=== PATIENT | male | born 1970 | race Caucasian/White ===

== ENCOUNTER → 2017-11-28 14:34 | Outpatient (CLI) | payer OTHER, SELFPAY ==
[2016-12-28 14:48] VITALS: BMI 48.2
[2017-11-28 15:35] LABS: Hematocrit 41.7 % (40-54); Hemoglobin 14.3 g/dl (13.0-16.5); Mean Corp Hgb Conc 34.3 g/gl (32-36); Mean Corpuscular Hgb 30.7 pg (27.0-32.0); Mean Corpuscular Volume 89.5 fL (80-94); Mean Platelet Vol. 9.1 fl (6.2-12.0); Platelet Count 203 K/mm3 (150-450); RBC Distribution Width SD 38.8 fl (35.1-43.9); Red Blood Count 4.66 M/mm3 (4.6-6.2); White Blood Count 6.5 K/mm3 (4.4-11.0)
[2017-11-28 15:39] LABS: Scan Indicated on CBC? Y/N NO
[2017-11-28 16:04] LABS: Microalbumin,Random Urine 7.8 mg/L (NO RANGE EST.); Microalbumin:Creatinine Ratio 5.5 mg/g CRE (<30 mg/g CRE)
[2017-11-28 17:05] LABS: ALB/GLOB Ratio 1.2 RATIO (0.9-2.4); AST(SGOT) 15 U/L (15-37); Alanine Aminotransfer ALT/SGPT 25 U/L (16-61); Alkaline Phosphatase 65 U/L (45-117); Anion Gap 10 (5-15); BUN 14 mg/dL (7-18); BUN/Creat Ratio 15.7 RATIO (10-20); Calcium,Total 9.3 mg/dL (8.5-10.1); Chloride 105 mmol/L (98-107); Cholesterol 196 mg/dL (200); Creatinine, Serum 0.89 mg/dL (0.70-1.30); EST Glomerular Filtration Rate 98 mL/min (>60); Est Glom Filt Rate - Afr Amer 118 mL/min (>60); Globulin 3.4 g/dL (2.2-4.2); Glucose 107 mg/dL (74-106); High Density Lipoprotein 47 mg/dL; Potassium 4.5 mmol/L (3.5-5.1); Protein, Total 7.4 g/dL (6.4-8.2); Sodium Level 143 mmol/L (136-145); Triglycerides 140 mg/dL; Very Low Density Lipoprotein 28 mg/dL (5-40)
[2017-11-29 09:20] LABS: Vitamin B12 212 pg/mL (211-911)
== END ==
PROVIDERS: Family Provider Family Medicine; PCP Family Medicine; Visit Provider Family Medicine
DX: E11.8 Type 2 diabetes mellitus with unspecified complications (principal); I25.10 Atherosclerotic heart disease of native coronary artery without angina pectoris
CPT/HCPCS: 36415; 80053; 80061; 82043; 82570; 82607; 82746; 84443; 85027

== ENCOUNTER 2020-05-14 10:09 | Emergency (ER) | payer OTHER, SELFPAY ==
[2016-12-28 14:48] VITALS: BMI 48.2
[2020-05-14 10:11] VITALS: BP 152/91; PULSE 70; RESP 16; TEMP 35.8; O2SAT 98; BMI 46.6
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
[2020-05-14] MEDS: Diphth,Pertuss(Acell),Tet Vac 0.5 ML Vial IM (10:31)
[2020-05-14] MEDS: Lidocaine 2% (20 ml mdv) 20 ML Vial INFILT (10:32)
[2020-05-14 12:00] VITALS: BP 162/103; PULSE 66; RESP 18
== END 2020-05-14 12:16 | disposition home or self-care (01) ==
PROVIDERS: Emergency Provider Student in an Organized Health Care Education/Training Program; PCP Family Medicine
DX: S61.212A Laceration without foreign body of right middle finger without damage to nail, initial encounter (principal); W26.8XXA Contact with other sharp object(s), not elsewhere classified, initial encounter; Y93.89 Activity, other specified; Y92.9 Unspecified place or not applicable; Y99.9 Unspecified external cause status; Z87.891 Personal history of nicotine dependence
CPT/HCPCS: 12001; 90471; 90715; 99283

== ENCOUNTER → 2020-12-15 | Outpatient (CLI) | payer OTHER, SELFPAY ==
[2016-12-28 14:48] VITALS: BMI 48.2
== END | disposition home or self-care (01) ==
PROVIDERS: PCP Family Medicine; Referring Provider Family Medicine; Visit Provider Family Medicine
DX: Z11.3 Encounter for screening for infections with a predominantly sexual mode of transmission (principal)

== ENCOUNTER 2021-05-01 08:38 | Outpatient (CLI) | payer OTHER, SELFPAY ==
[2016-12-28 14:48] VITALS: BMI 48.2
[2021-05-01 10:50] LABS: ALB/GLOB Ratio 1.1 RATIO (0.9-2.4); AST(SGOT) 12 U/L (15-37); Alanine Aminotransfer ALT/SGPT 25 U/L (16-61); Albumin, Serum 3.8 g/dL (3.2-5.0); Alkaline Phosphatase 55 U/L (45-117); Anion Gap 6 (5-15); BUN 21 mg/dL (7-18); BUN/Creat Ratio 21.2 RATIO (10-20); Calcium,Total 8.7 mg/dL (8.5-10.1); Chloride 107 mmol/L (98-107); Cholesterol 214 mg/dL (200); Creatinine, Serum 0.99 mg/dL (0.70-1.30); EST Glomerular Filtration Rate 85 mL/min (>60); Est Glom Filt Rate - Afr Amer 103 mL/min (>60); Globulin 3.4 g/dL (2.2-4.2); Glucose 152 mg/dL (74-106); High Density Lipoprotein 50 mg/dL; Potassium 4.1 mmol/L (3.5-5.1); Protein, Total 7.2 g/dL (6.4-8.2); Sodium Level 138 mmol/L (136-145); Thyroid Stim Hormone (TSH) 2.55 uIU/mL (0.358-3.74); Triglycerides 106 mg/dL; Very Low Density Lipoprotein 21 mg/dL (5-40)
== END 2021-05-01 23:59 | disposition short-term general hospital (02) ==
LOC: MFPLAB 08:38
PROVIDERS: PCP Family Medicine; Visit Provider Family Medicine
DX: E11.65 Type 2 diabetes mellitus with hyperglycemia (principal); E66.01 Morbid (severe) obesity due to excess calories; I25.10 Atherosclerotic heart disease of native coronary artery without angina pectoris
CPT/HCPCS: 36415; 80053; 80061; 84443

== ENCOUNTER → 2022-10-15 | Outpatient (CLI) | payer OTHER, SELFPAY ==
[2016-12-28 14:48] VITALS: BMI 48.2
--- NOTE | 2022-10-17 12:31 | STRESSREP_ITS ---
Stress Test Report Date: Procedure: Exercise tolerance test Indications: Coronary artery disease Consent: Per the patient Procedure: The patient exercised on a Andriy protocol for 9 minutes achieving a peak heart rate of 142 bpm (84% predicted maximal heart rate) with a peak blood pressure 158/78 mmHg and a peak MET capacity of approximately 10.4 MET's. The baseline ECG demonstrated normal sinus rhythm. The peak exercise ECG demonstrated no ischemic change. There were no cardiac dysrhythmias pretest, during exercise, or recovery. The functional capacity was considered adequate. The patient had no complaints of chest discomfort during exercise or recovery. The examination was discontinued secondary to target heart rate being achieved. Impression: 1. Technically adequate (percent predicted maximal heart rate greater than 85%) exercise tolerance test 2. Peak exercise ECG with no ischemic changes 3. There were no cardiac dysrhythmias during exercise or recovery This note was generated with SynapSenseation software. It may contain incorrect words, spelling, and punctuation that were not noted in checking the note before signing.
== END | disposition home or self-care (01) ==
LOC: CVS 11:31
PROVIDERS: PCP Family Medicine; Referring Provider Internal Medicine Cardiovascular Disease; Visit Provider Internal Medicine Cardiovascular Disease
DX: Z01.810 Encounter for preprocedural cardiovascular examination (principal); E11.9 Type 2 diabetes mellitus without complications; Z95.5 Presence of coronary angioplasty implant and graft; I25.10 Atherosclerotic heart disease of native coronary artery without angina pectoris; G47.33 Obstructive sleep apnea (adult) (pediatric); I10 Essential (primary) hypertension
CPT/HCPCS: 93017

== ENCOUNTER → 2023-05-16 | Outpatient (CLI) | payer OTHER, SELFPAY ==
[2016-12-28 14:48] VITALS: BMI 48.2
[2023-05-16 17:34] LABS: Absolute Lymphocyte Count 3.06 X10^3/uL (0.83-4.51); Absolute Neutrophil Count 3.8 X10^3/uL (2.0-7.7); Basophil# 0.05 X10^3/uL; Basophil% 0.7 % (0-1); Eosinophil# 0.05 X10^3/uL; Eosinophils% 0.7 % (0-5); Hematocrit 44.1 % (40-54); Hemoglobin 14.5 g/dL (13.0-16.5); Lymphocyte # 3.06 X10^3/ul (0.83-4.51); Lymphocyte % 40.9 % (19-41); Mean Corp Hgb Conc 32.9 g/dL (32-36); Mean Corpuscular Hgb 28.7 pg (27.0-32.0); Mean Corpuscular Volume 87.2 fL (80-94); Mean Platelet Vol. 9.4 fl (6.2-12.0); Monocyte# 0.51 X10^3/uL; Monocyte% 6.8 % (0-10); NRBC Flagged by Analyzer 0 % (0-5); Neutrophil # 3.81 X10^3/uL (2.7-7.7); Neutrophil % 50.8 % (47-70); Platelet Count 218 K/mm3 (150-450); RBC Distribution Width CV 12.3 % (11.6-14.6); RBC Distribution Width SD 39.2 fl (35.1-43.9); Red Blood Count 5.06 M/mm3 (4.6-6.2); White Blood Count 7.5 K/mm3 (4.4-11.0)
[2023-05-16 18:17] LABS: AST(SGOT) 16 U/L (15-37); Alanine Aminotransfer ALT/SGPT 31 U/L (16-61); Albumin, Serum 3.8 g/dL (3.2-5.0); Alkaline Phosphatase 57 U/L (45-117); Anion Gap 6 (5-15); BUN 15 mg/dL (7-18); BUN/Creat Ratio 15.2 RATIO (10-20); Calcium,Total 9.5 mg/dL (8.5-10.1); Chloride 107 mmol/L (98-107); Cholesterol 169 mg/dL (200); Creatinine, Serum 0.99 mg/dL (0.70-1.30); EST Glomerular Filtration Rate 84 mL/min (>60); Est Glom Filt Rate - Afr Amer 102 mL/min (>60); Globulin 3.9 g/dL (2.2-4.2); Glucose 87 mg/dL (74-106); PSA,Total - Annual Screen 0.38 ng/mL (0.00-4.00); Potassium 3.8 mmol/L (3.5-5.1); Protein, Total 7.7 g/dL (6.4-8.2); Sodium Level 139 mmol/L (136-145)
[2023-05-16 18:40] LABS: Microalbumin,Random Urine 7.1 mg/L (NO RANGE EST.)
[2023-05-18 08:11] LABS: LDL, Direct 120295 106 mg/dL (0-99)
== END | disposition home or self-care (01) ==
LOC: MFPLAB 16:26
PROVIDERS: PCP Family Medicine; Visit Provider Family Medicine
DX: I25.10 Atherosclerotic heart disease of native coronary artery without angina pectoris (principal); E11.69 Type 2 diabetes mellitus with other specified complication; Z12.5 Encounter for screening for malignant neoplasm of prostate
CPT/HCPCS: 36415; 80053; 82043; 82465; 82570; 83721; 84153; 85025; G0103

== ENCOUNTER → 2023-08-01 | Outpatient (CLI) | payer OTHER, SELFPAY ==
[2016-12-28 14:48] VITALS: BMI 48.2
[2023-08-01 12:34] LABS: ALB/GLOB Ratio 1.1 RATIO (0.9-2.4); AST(SGOT) 12 U/L (15-37); Alanine Aminotransfer ALT/SGPT 18 U/L (16-61); Albumin, Serum 3.8 g/dL (3.2-5.0); Alkaline Phosphatase 56 U/L (45-117); Anion Gap 7 (5-15); BUN 13 mg/dL (7-18); BUN/Creat Ratio 12.7 RATIO (10-20); Calcium,Total 9.5 mg/dL (8.5-10.1); Chloride 107 mmol/L (98-107); Cholesterol 197 mg/dL (200); Creatinine, Serum 1.02 mg/dL (0.70-1.30); EST Glomerular Filtration Rate 82 mL/min (>60); Est Glom Filt Rate - Afr Amer 99 mL/min (>60); Globulin 3.4 g/dL (2.2-4.2); Glucose 81 mg/dL (74-106); High Density Lipoprotein 52 mg/dL; Protein, Total 7.2 g/dL (6.4-8.2); Sodium Level 141 mmol/L (136-145); Triglycerides 65 mg/dL; Very Low Density Lipoprotein 13 mg/dL (5-40)
[2023-08-01 13:49] LABS: Hemoglobin A1c 5.7 % (3.8-5.6)
== END | disposition home or self-care (01) ==
PROVIDERS: PCP Family Medicine; Referring Provider Family Medicine; Visit Provider Family Medicine
DX: I25.10 Atherosclerotic heart disease of native coronary artery without angina pectoris (principal); E11.69 Type 2 diabetes mellitus with other specified complication; E78.5 Hyperlipidemia, unspecified
CPT/HCPCS: 36415; 80053; 80061; 83036

== ENCOUNTER → 2023-10-15 | Outpatient (CLI) | payer OTHER, SELFPAY ==
[2016-12-28 14:48] VITALS: BMI 48.2
[2023-10-15 16:28] LABS: ALB/GLOB Ratio 1.1 RATIO (0.9-2.4); AST(SGOT) 12 U/L (15-37); Alanine Aminotransfer ALT/SGPT 16 U/L (16-61); Albumin, Serum 3.6 g/dL (3.2-5.0); Alkaline Phosphatase 51 U/L (45-117); Anion Gap 7 (5-15); BUN 13 mg/dL (7-18); BUN/Creat Ratio 13.4 RATIO (10-20); Calcium,Total 9.5 mg/dL (8.5-10.1); Chloride 107 mmol/L (98-107); Cholesterol 185 mg/dL (200); Creatinine, Serum 0.97 mg/dL (0.70-1.30); EST Glomerular Filtration Rate 86 mL/min (>60); Est Glom Filt Rate - Afr Amer 104 mL/min (>60); Globulin 3.4 g/dL (2.2-4.2); Glucose 93 mg/dL (74-106); High Density Lipoprotein 54 mg/dL; Potassium 3.8 mmol/L (3.5-5.1); Sodium Level 137 mmol/L (136-145); Triglycerides 72 mg/dL; Very Low Density Lipoprotein 14 mg/dL (5-40)
[2023-10-15 17:18] LABS: Hemoglobin A1c 5.3 % (3.8-5.6)
== END | disposition home or self-care (01) ==
LOC: MFPLAB 13:44
PROVIDERS: PCP Family Medicine; Visit Provider Family Medicine
DX: E11.69 Type 2 diabetes mellitus with other specified complication (principal)
CPT/HCPCS: 36415; 80053; 80061; 83036

== ENCOUNTER 2024-03-05 04:32 | Observation (INO) | payer OTHER, SELFPAY ==
[2016-12-28 14:48] VITALS: BMI 48.2
[2024-03-05] VITALS (8 sets, daily range): BP systolic 99–118; BP diastolic 61–76; PULSE 50–72; RESP 14–18; TEMP 36.2–36.7; O2SAT 93–98; BMI 36.3; BMI 34.9
--- NOTE | 2024-03-05 04:47 | RAD_ITS ---
INDICATION: chest pain EXAMINATION/TECHNIQUE: X-RAY - XR Chest 2 Views COMPARISON: Prior study dated: 02/22/2016 FINDINGS: LINES/DEVICES: None. LUNGS: The lungs are well expanded. No consolidation, edema or effusion. No pneumothorax. MEDIASTINUM AND CARDIOVASCULAR STRUCTURES: Cardiac silhouette not enlarged. Central airways and mediastinal contour are unremarkable. BONES AND SOFT TISSUES: No acute abnormality. RAD/Chest PA and Lateral IMPRESSION: No acute pulmonary finding. Electronically Signed: Baudilio Avila MD at 6:25 EST ,
--- NOTE | 2024-03-05 04:47 | RAD_ITS ---
INDICATION: thumb pain after fall EXAMINATION/TECHNIQUE: X-RAY - RIGHT XR Hand Min 3 Views COMPARISON: None. FINDINGS: SOFT TISSUES: Tiny punctate hyperdensities in the soft tissues of the dorsal aspect of the proximal second finger and distal third metacarpal. BONES/JOINTS: No fracture or dislocation. No significant degenerative changes. No erosive changes. RAD/Hand Min 3 Views IMPRESSION: No fracture or dislocation. Electronically Signed: Donta Alberto DO at 6:30 EST ,
--- NOTE | 2024-03-05 04:47 | CT_ITS ---
INDICATION: syncope EXAMINATION: CT BRAIN - CT Head or Brain W/O Contrast Injection TECHNIQUE: Multiple axial images were obtained of the head with sagittal and coronal reconstructed images. Individualized dose optimization techniques were used for this CT. IV contrast dosage and agent: None. COMPARISON: None. FINDINGS: BRAIN PARENCHYMA: No evidence of an acute infarct or intracranial hemorrhage. No evidence of a mass. CSF SPACES: The ventricles, sulci and subarachnoid cisterns are appropriate for age. CALVARIUM, SKULL BASE, PARANASAL SINUSES AND MASTOID AIR CELLS: No fracture. Mastoid air cells are clear. Visualized paranasal sinuses are unremarkable. ORBITS: The globes, extraocular muscles, optic nerves and retrobulbar fat are unremarkable. CT/Brain/Head without Contrast IMPRESSION: Normal noncontrast CT of the head. Electronically Signed: Donta Alberto DO at 6:33 EST ,
[2024-03-05 04:59] LABS: Absolute Lymphocyte Count 3.27 X10^3/uL (0.83-4.51); Basophil# 0.05 X10^3/uL; Basophil% 0.7 % (0-1); Eosinophil# 0.15 X10^3/uL; Eosinophils% 2.1 % (0-5); Hematocrit 41.2 % (40-54); Hemoglobin 14.3 g/dL (13.0-16.5); Lymphocyte # 3.27 X10^3/ul (0.83-4.51); Lymphocyte % 46.8 % (19-41); Mean Corp Hgb Conc 34.7 g/dL (32-36); Mean Corpuscular Hgb 31.7 pg (27.0-32.0); Mean Corpuscular Volume 91.4 fL (80-94); Mean Platelet Vol. 9.1 fl (6.2-12.0); Monocyte# 0.55 X10^3/uL; Monocyte% 7.9 % (0-10); NRBC Flagged by Analyzer 0 % (0-5); Neutrophil # 2.95 X10^3/uL (2.7-7.7); Neutrophil % 42.2 % (47-70); Platelet Count 185 K/mm3 (150-450); RBC Distribution Width SD 43.3 fl (35.1-43.9); Red Blood Count 4.51 M/mm3 (4.6-6.2)
[2024-03-05 05:34] LABS: Anion Gap 6 (5-15); BUN 25 mg/dL (7-18); BUN/Creat Ratio 23.8 RATIO (10-20); Calcium,Total 9.3 mg/dL (8.5-10.1); Chloride 108 mmol/L (98-107); Creatinine, Serum 1.05 mg/dL (0.70-1.30); EST Glomerular Filtration Rate 79 mL/min (>60); Est Glom Filt Rate - Afr Amer 95 mL/min (>60); Estimated Creatinine Clearance 95.15 ml/min; Glucose 107 mg/dL (74-106); Magnesium 2.1 mg/dL (1.6-2.6); Potassium 3.8 mmol/L (3.5-5.1); Sodium Level 140 mmol/L (136-145); Troponin-I HS (w/2H Reflex) 3 pg/mL (3.0-78.0)
[2024-03-05] MEDS: HYDROcodone Bitartrate/Apap 5/325 Tablet PO (05:34)
[2024-03-05] MEDS: Ondansetron ODT 4 MG Tablet PO (05:34)
--- NOTE | 2024-03-05 05:41 | EDS_ITS ---
HPI History of Present Illness Chief Complaint: Fall Narrative Narrative: Patient is a 53-year-old male with past medical history of GUEVARA, hypertension, type 2 diabetes, hyperlipidemia, CAD with 1 stent who presents to the emergency department chief complaint of passing out. Patient states that he woke up around 4 AM this morning and got turkey out of the open and states that he went to clean up the extra turkey and notes that he did not feel his normal self and felt off. He states that he went to the other side of the kitchen and states that he woke up on the ground he does not recall what exactly happened. He states that he passed out second time while waiting for the paramedics to get there which was also unwitnessed. His family member at bedside states that he passed out a third time while sitting on the bed. States that nothing like this is ever happened before. He states that currently feels back to his baseline but is unsure exactly what caused his symptoms today. [facility] Medical History Chest pain Preop cardiovascular exam Coronary artery disease GUEVARA on CPAP Morbid obesity Essential hypertension Atherosclerotic heart disease of [place] coronary artery without angina pectoris Abnormal nuclear stress test Diabetes mellitus type II, controlled Hyperlipidemia Home Medications ?Medication ?Instructions ?Recorded ?Last Taken ?Type NK 03/05/24 Unknown History Allergy/AdvReac Type Severity Reaction Status Date / Time amoxicillin Allergy Upset Verified 10/03/22 10:39 Stomach Penicillins Allergy Unknown Verified 10/03/22 10:39 Family History Mother , age 56 Diabetes Myocardial infarction CAD (coronary artery disease) Father Overweight Surgical History History of coronary artery stent placement Status post arterial stent Social History Smoking Status: Former smoker how long ago did patient quit smokin alcohol intake: current alcohol intake frequency: a few times a month substance use type: does not use caffeine: Yes Type: coffee Number of servings: 4 ROS ROS ED ROS Narrative Constitutional: Denies headaches, lightness, dizziness, fevers, chills currently Eyes: Denies change in vision double vision blurry vision Cardiovascular: Denies chest pain or palpitations Respiratory: Denies coughing wheezing shortness of breath Abdomen: Denies abdominal pain nausea vomit diarrhea : Denies urinary symptoms Neurological: Denies numbness, weakness, tingling Musculoskeletal: Complains of right thumb pain and states that he thinks he may have broken thumb, denies back pain Skin: Denies rashes or lesions EXAM Physical Exam Narrative Exam Narrative: General: Patient lying in bed rest comfortably did not appear to be in acute distress Head: Atraumatic, normocephalic Eyes: PERRL bilateral, EOMI bilateral no conjunctival injection noted Neck: Soft, supple, trachea midline Cardiovascular: Regular rate and rhythm no murmurs gallops rubs noted Respiratory: Clear to auscultation bilaterally Abdomen: No tenderness palpation, bowel sounds present x 4, soft, nondistended Extremities: +5/5 strength noted in the bilateral upper extremities, radial pulses +2/4 in the bilateral per extremities, +5/5 strength noted in the bilateral lower extremities, no pedal edema on exam Musculoskeletal: Patient has pain with attempted range of motion of his right thumb. Neurological: Patient follow commands knew that he was at [facility] year is 2023. Patient completed finger-nose and [id number] test bilaterally thigh difficulty, NIH of 0 GCS 15 Skin: Warm, dry, intact Const Vital Signs: 03/05/24 04:33 03/05/24 04:37 03/05/24 04:47 Temperature 97.7 F L Temperature Source Oral Pulse Rate 64 Pulse Rate [Lying] Respiratory Rate 18 Respiratory Effort Normal Non-Labored Respiratory Depth Normal Respiratory Pattern Normal Blood Pressure 118/61 Blood Pressure [Lying] Blood Pressure [Sitting (for 1 minute prior to obtaining)] Blood Pressure [Standing (for 1 minute prior to obtaining)] Blood Pressure Mean 80 Blood Pressure Mean [Lying] Blood Pressure Mean [Sitting (for 1 minute prior to obtaining)] Blood Pressure Mean [Standing (for 1 minute prior to obtaining)] Pulse Ox 98 Oxygen Delivery Method Room Air Room Air Room Air 03/05/24 06:11 03/05/24 07:11 Temperature Temperature Source Pulse Rate 58 L Pulse Rate [Lying] 62 Respiratory Rate 15 Respiratory Effort Respiratory Depth Respiratory Pattern Blood Pressure 111/75 Blood Pressure [Lying] 104/64 Blood Pressure [Sitting (for 1 minute prior to obtaining)] 110/71 Blood Pressure [Standing (for 1 minute prior to obtaining)] 112/73 Blood Pressure Mean 87 Blood Pressure Mean [Lying] 77 Blood Pressure Mean [Sitting (for 1 minute prior to obtaining)] 84 Blood Pressure Mean [Standing (for 1 minute prior to obtaining)] 86 Pulse Ox 96 Oxygen Delivery Method Room Air MDM MDM MDM Narrative Medical decision making narrative: Patient is a 53-year-old male who presented to the emergency department the chief complaint of multiple episodes of syncope. Patient will have a workup performed here on the differential diagnose includes but limited to ACS, hypothyroidism, hyperthyroidism, intracranial hemorrhage, TIA. Once workup is obtained reviewed he will be reevaluated. Patient be given Jackson for his right hand pain. Patient's CBC was largely unremarkable no evidence leukocytosis white blood count normal at 7, hemoglobin 14.3, platelet count was noted to be 185. Patient sodium was noted be 140, potassium normal 3.8, creatinine normal at 1.05. Patient's glucose was 9107, troponin was noted be normal at 3. Patient's TSH was 6.59 will add on free T4 and free T3. Patient's EKG reviewed and independently interpreted by myself showed sinus rhythm with a rate of [address] head and brain without contrast showed no acute intracranial pathology. Patient's chest x-ray reviewed by myself and by radiology showed no acute cardiopulmonary findings. Patient's x-ray of his hand reviewed showed no acute fracture or dislocation reviewed by myself and by radiology. On reexamination of the patient's thumb he has some mild pain with movement otherwise can axial load of the thumb without any pain no snuffbox tenderness noted. At this point in time given the patient is had 3 episodes of syncope today prior to the hospital do believe the patient will warrant admission given his underlying CAD as well. Patient's case will be discussed with hospitalist. Discussed case with hospitalist Dr. Gary who is recommending obtaining orthostatic vital signs. Orthostatic vital signs were negative therefore the patient will be admitted to his service for further evaluation management patient is agreeable with this plan all question concerns answered bedside. Lab Data Labs: Laboratory Results - last 24 hr 03/05/24 04:38 WBC 7.0 RBC 4.51 L Hgb 14.3 Hct 41.2 MCV 91.4 MCH 31.7 MCHC 34.7 RDW Std Deviation 43.3 RDW Coeff of Corrie 13.0 Plt Count 185 MPV 9.1 Immature Gran % (Auto) 0.300 Neut % (Auto) 42.2 L Lymph % (Auto) 46.8 H [place] % (Auto) 7.9 Eos % (Auto) 2.1 Baso % (Auto) 0.7 Absolute Neuts (auto) 3.0 Absolute Lymphs (auto) 3.27 Nucleated RBC % 0 Sodium 140 Potassium 3.8 Chloride 108 H Carbon Dioxide 27.0 Anion Gap 6 BUN 25 H Creatinine 1.05 Estim Creat Clear Calc 95.15 Est GFR (MDRD) Af Amer 95 Est GFR (MDRD) Non-Af 79 BUN/Creatinine Ratio 23.8 H Glucose 107 H Calcium 9.3 Magnesium 2.1 Troponin I High Sens 3 TSH 6.590 H Free T4 1.10 Free T3 pg/dL 2.6 Radiography Diagnostic Testing: Clinical Impression(s) from Imaging Studies Brain CT 03/05/24 04:47 IMPRESSION: Normal noncontrast CT of the head. Electronically Signed: Donta Alberto DO at 6:33 EST , Chest X-Ray 03/05/24 04:47 IMPRESSION: No acute pulmonary finding. Electronically Signed: Baudilio Avila MD at 6:25 EST , Hand X-Ray 03/05/24 04:47 IMPRESSION: No fracture or dislocation. Electronically Signed: Donta Alberto DO at 6:30 EST , Discharge Plan Triage Chief Complaint: Fall ED Provider: Fred El Dx/Rx/DC Orders Clinical Impression: Syncope Prescriptions: No Action NK Primary Care Provider: Devon Lee Referrals: Devon Lee MD [Primary Care Provider] - Print Language: Sudanese
[2024-03-05 06:51] LABS: Reflex Troponin-HS? (from REC) Y
[2024-03-05 06:57] LABS: Free T3 2.6 pg/mL (2.18-3.98)
[2024-03-05 07:35] LABS: Troponin-I HS 4 pg/mL (3.0-78.0)
[2024-03-05] MEDS: 0.9% Normal Saline (1000mL) 1,000 ML 100 ML IV (08:29)
--- NOTE | 2024-03-05 09:17 | ECHOD_ITS ---
Reason For Study: SYNCOPE Procedure This was a 2D Doppler, Color Flow transthoracic echocardiogram. Exam performed portable in patient room. Left Ventricle Normal LV size. The estimated ejection fraction is 60 %. No evidence for diastolic dysfunction. No regional wall motion abnormalities noted. Right Ventricle Normal RV size. Normal systolic function. Atria The left and right atria are normal. Mitral Valve The mitral valve is structurally normal. No prolapse or stenosis seen. Trivial mitral valve insufficiency. Tricuspid Valve Normal tricuspid valve. Trivial tricuspid valve insufficiency. Pulmonary artery systolic pressure is 20 mmHg. Aortic Valve Trisinus/trileaflet aortic valve. Pulmonic Valve The pulmonic valve is not well visualized. Great Vessels Normal aortic root. Pericardium/Pleural No pericardial effusion. MMode/2D Measurements & Calculations LVIDd: 4.9 cm IVSd: 0.96 cm LVOT diam: 2.2 cm LVIDs: 2.9 cm LVPWd: 1.3 cm LVOT area: 3.8 cm2 FS: 41.3 % asc Aorta Diam: 2.9 cm LAV(MOD-bp): 52.7 ml LVAd ap4: 31.3 cm2 LAV(MOD-bp) Indexed: 24.9 ml/m2 LVLd ap4: 8.4 cm LAV(MOD-sp2): 50.4 ml EDV(MOD-sp4): 99.1 ml LAV(MOD-sp4): 51.6 ml EDV(sp4-el): 99.2 ml LVAs ap4: 17.2 cm2 LVLs ap4: 7.1 cm ESV(MOD-sp4): 37.7 ml ESV(sp4-el): 35.7 ml EF(MOD-sp4): 62.0 % EF(sp4-el): 64.0 % SV(MOD-sp4): 61.4 ml SV(sp4-el): 63.6 ml LA A4 area: 19.0 cm2 SI(MOD-sp4): 29.0 ml/m2 RA A4 area: 20.8 cm2 Time Measurements MV dec time: 0.22 sec Doppler Measurements & Calculations MV E max jordin: 70.4 cm/sec Lat Peak E' Jordin: 12.8 cm/sec Med Peak E' Jordin: 13.4 cm/sec MV A max jordin: 55.7 cm/sec E/E' lat: 5.5 E/E' med: 5.3 MV E/A: 1.3 MV V2 max: 85.9 cm/sec Ao V2 max: 146.2 cm/sec MV max P.0 mmHg MV dec slope: 318.8 cm/sec2 Ao max P.5 mmHg MV V2 mean: 41.3 cm/sec Ao V2 mean: 93.9 cm/sec MV mean P.84 mmHg Ao mean P.1 mmHg MV V2 VTI: 28.0 cm Ao V2 VTI: 37.9 cm AV (velocity ratio): 0.63 MVA(VTI): 3.3 cm2 EVELINE(I,D): 2.4 cm2 EVELINE(V,D): 2.7 cm2 LV V1 max: 104.9 cm/sec SV(LVOT): 91.3 ml PA V2 max: 96.2 cm/sec LV V1 max P.4 mmHg LV V1 mean P.2 mmHg LV V1 mean: 68.8 cm/sec LV V1 VTI: 23.9 cm TR max jordin: 203.9 cm/sec TR max P.6 mmHg ECHO/Echo Complete Interpretation Summary The estimated ejection fraction is 60 %. No evidence for diastolic dysfunction. Structually normal valves. Ordering Physician: James Gary Referring Physician: AYAAN POSADA Performed By: Jessica Billingsley and Student
--- NOTE | 2024-03-05 15:12 | HP.PCM.HOS_ITS ---
HPI - General General Date of Admission: 03/05/24 HPI Narrative AMBER LAGUNAS, is a 53 M who presents to the hospital with 3 syncopal episodes at home. The first 1 happened around 4 in the morning as he was helping his with Thanksgiving turkey and he started to feel dizzy and collapsed to the floor. His found him and asked if you want to go to the ER and he said yes so he went to go put pants on and states that he passed out twice in the bedroom both of these were witnessed by his . No signs of seizure activity, and he denies any sensation of palpitations or chest pain. No lightheadedness or dizziness during the last 2 episodes but he did have some dizziness with the first episode. Blood sugar initial lab work was unremarkable in the ER. Orthostatic vital signs were normal. He does have a cardiac history with stent placement about 6 years ago. Since that time he has lost 96 pounds and he has had a calorie deficit of around 12 to 1500 uyen/day FORMERLY [facility], [facility] Medical History Chest pain Preop cardiovascular exam Coronary artery disease GUEVARA on CPAP Morbid obesity Essential hypertension Atherosclerotic heart disease of [place] coronary artery without angina pectoris Abnormal nuclear stress test Diabetes mellitus type II, controlled Hyperlipidemia Home Medications ?Medication ?Instructions ?Recorded ?Last Taken ?Type NK 03/05/24 Unknown History Allergy/AdvReac Type Severity Reaction Status Date / Time amoxicillin Allergy Upset Verified 10/03/22 10:39 Stomach Penicillins Allergy Unknown Verified 10/03/22 10:39 Family History Mother , age 56 Diabetes Myocardial infarction CAD (coronary artery disease) Father Overweight Surgical History History of coronary artery stent placement Status post arterial stent Social History Smoking Status: Former smoker how long ago did patient quit smokin alcohol intake: current alcohol intake frequency: a few times a month substance use type: does not use caffeine: Yes Type: coffee Number of servings: 4 ROS Constitutional Constitutional: Denies chills, fatigue, fever(s) or malaise Eyes Eyes: Denies blurry vision ENT HEENT: Denies headache(s) or nasal discharge Cardiovascular Cardiovascular: Reports syncope; Denies chest pain or dyspnea on exertion Respiratory/Chest Respiratory/Chest: Denies cough, shortness of breath at rest or shortness of breath with exertion Gastrointestinal Gastrointestinal: Denies constipation, diarrhea, nausea or vomiting Genitourinary Genitourinary: Denies dysuria Neurologic Neurologic: Reports dizziness; Denies focal weakness, numbness or tremor(s) Psychiatric Psychiatric: Denies anxiety or depression Vital Signs Vital Signs Vital Signs: 03/05/24 04:33 03/05/24 04:37 03/05/24 04:47 Temperature 97.7 F L Temperature Source Oral Pulse Rate 64 Pulse Rate [Lying] Pulse Rate [Sitting (for 1 minute prior to obtaining)] Pulse Rate [Standing (for 1 minute prior to obtaining)] Pulse Strength Respiratory Rate 18 Respiratory Effort Normal Non-Labored Respiratory Depth Normal Respiratory Pattern Normal Blood Pressure 118/61 Blood Pressure [Lying] Blood Pressure [Sitting (for 1 minute prior to obtaining)] Blood Pressure [Standing (for 1 minute prior to obtaining)] Blood Pressure Mean 80 Blood Pressure Mean [Lying] Blood Pressure Mean [Sitting (for 1 minute prior to obtaining)] Blood Pressure Mean [Standing (for 1 minute prior to obtaining)] Blood Pressure Source Blood Pressure Position Blood Pressure Location Pulse Ox 98 Oxygen Delivery Method Room Air Room Air Room Air 03/05/24 06:11 03/05/24 07:09 03/05/24 07:11 Temperature Temperature Source Pulse Rate 58 L 68 Pulse Rate [Lying] 62 Pulse Rate [Sitting (for 1 minute prior to obtaining)] 70 Pulse Rate [Standing (for 1 minute prior to obtaining)] 72 Pulse Strength Respiratory Rate 15 Respiratory Effort Respiratory Depth Respiratory Pattern Blood Pressure 111/75 99/65 Blood Pressure [Lying] 104/64 Blood Pressure [Sitting (for 1 minute prior to obtaining)] 110/71 Blood Pressure [Standing (for 1 minute prior to obtaining)] 112/73 Blood Pressure Mean 87 76 Blood Pressure Mean [Lying] 77 Blood Pressure Mean [Sitting (for 1 minute prior to obtaining)] 84 Blood Pressure Mean [Standing (for 1 minute prior to obtaining)] 86 Blood Pressure Source Blood Pressure Position Blood Pressure Location Pulse Ox 96 Oxygen Delivery Method Room Air 03/05/24 07:23 03/05/24 08:00 03/05/24 09:09 Temperature 98.1 F 97.2 F L Temperature Source Temporal Pulse Rate 58 L 56 L Pulse Rate [Lying] Pulse Rate [Sitting (for 1 minute prior to obtaining)] Pulse Rate [Standing (for 1 minute prior to obtaining)] Pulse Strength Respiratory Rate 18 18 Respiratory Effort Normal Non-Labored Respiratory Depth Normal Respiratory Pattern Normal Blood Pressure 112/73 110/76 Blood Pressure [Lying] Blood Pressure [Sitting (for 1 minute prior to obtaining)] Blood Pressure [Standing (for 1 minute prior to obtaining)] Blood Pressure Mean 86 87 Blood Pressure Mean [Lying] Blood Pressure Mean [Sitting (for 1 minute prior to obtaining)] Blood Pressure Mean [Standing (for 1 minute prior to obtaining)] Blood Pressure Source Monitor Blood Pressure Position Semi-Fowlers Blood Pressure Location Left Arm Pulse Ox 98 95 Oxygen Delivery Method Room Air Room Air 03/05/24 10:00 03/05/24 15:08 Temperature 97.1 F L Temperature Source Temporal Pulse Rate 57 L Pulse Rate [Lying] Pulse Rate [Sitting (for 1 minute prior to obtaining)] Pulse Rate [Standing (for 1 minute prior to obtaining)] Pulse Strength Normal (2+) Respiratory Rate 18 Respiratory Effort Respiratory Depth Respiratory Pattern Blood Pressure 114/76 Blood Pressure [Lying] Blood Pressure [Sitting (for 1 minute prior to obtaining)] Blood Pressure [Standing (for 1 minute prior to obtaining)] Blood Pressure Mean 88 Blood Pressure Mean [Lying] Blood Pressure Mean [Sitting (for 1 minute prior to obtaining)] Blood Pressure Mean [Standing (for 1 minute prior to obtaining)] Blood Pressure Source Monitor Blood Pressure Position Semi-Fowlers Blood Pressure Location Left Arm Pulse Ox 93 Oxygen Delivery Method Room Air Weight Weight: 223 lb 1.725 oz Body Mass Index (BMI) 34.9 Physical Exam Narrative General: Alert, Oriented x3, Cooperative, No apparent distress HEENT: Atraumatic, PERRLA, EOMI, Normocephalic Oral: Moist Mucosa Neck: Supple, No JVD Lungs: Clear to auscultation, Normal air movement, No rhonchi, No wheeze, No rales Cardiovascular: Regular rate, Regular Rhythm, Normal S1, Normal S2, No murmurs Abdomen: Soft, Non Tender, Non-Distended, No Hepato-splenomegaly Extremities: No edema, Capillary Refill Less than 3 Seconds Skin: No rashes, No breakdown Musculoskeletal: No Tenderness to Palpation of Joints or Extremities Neurological: No focal neurological deficits, Motor Exam 5/5 strength throughout, Sensory exam intact to light touch and pain Psych/Mental Status: Normal Affect, Appropriate Results Lab / Micro Data 03/05/24 04:38 03/05/24 04:38 Labs: Laboratory Results - last 24 hr 03/05/24 04:38: WBC 7.0, RBC 4.51 L, Hgb 14.3, Hct 41.2, MCV 91.4, MCH 31.7, MCHC 34.7, RDW Std Deviation 43.3, RDW Coeff of Corrie 13.0, Plt Count 185, MPV 9.1, Immature Gran % (Auto) 0.300, Neut % (Auto) 42.2 L, Lymph % (Auto) 46.8 H, [place] % (Auto) 7.9, Eos % (Auto) 2.1, Baso % (Auto) 0.7, Absolute Neuts (auto) 3.0, Absolute Lymphs (auto) 3.27, Nucleated RBC % 0, Sodium 140, Potassium 3.8, Chloride 108 H, Carbon Dioxide 27.0, Anion Gap 6, BUN 25 H, Creatinine 1.05, Estim Creat Clear Calc 95.15, Est GFR (MDRD) Af Amer 95, Est GFR (MDRD) Non-Af 79, BUN/Creatinine Ratio 23.8 H, Glucose 107 H, Calcium 9.3, Magnesium 2.1, Troponin I High Sens 3, TSH 6.590 H, Free T4 1.10, Free T3 pg/dL 2.6 03/05/24 07:00: Troponin I High Sens 4 Imaging Radiology Impression Brain CT 03/05/24 04:47 IMPRESSION: Normal noncontrast CT of the head. Electronically Signed: Donta Alberto DO at 6:33 EST , Chest X-Ray 03/05/24 04:47 IMPRESSION: No acute pulmonary finding. Electronically Signed: Baudilio Avila MD at 6:25 EST , Hand X-Ray 03/05/24 04:47 IMPRESSION: No fracture or dislocation. Electronically Signed: Donta Alberto, DO at 6:30 EST , Assessment & Plan Assessment/Plan (1) Syncope: PLAN: Plan 1. Syncope ? Unclear as to the etiology at the moment, does not appear to be vasovagal and his orthostatic vitals were normal ? Continue with IV fluids for 1 L ? Continue with telemetry ? will obtain an echo tomorrow ? Lab work so far is unremarkable and unlikely to be seizures ? His TSH was elevated to 6.5 however his T4 and T3 were both within the normal ranges 2. Coronary artery disease status post stent ? This was about 6 years ago and since then he is lost close to 100 pounds and has come off of all of his medications ? He did have 2 negative troponins today of 3 and 4 DVT: Ambulation 55 minutes was spent on direct patient care, including documentation as well as chart review and collaboration with colleagues Charges/Coding Visit Charges Inpatient E&M: 19427 Init Hosp L2
[2024-03-05] MEDS: Acetaminophen 325 MG Tablet 650 MG PO (18:20)
[2024-03-06 04:00] VITALS: BP 105/58; PULSE 58; RESP 14; TEMP 36.6; O2SAT 93
[2024-03-06 05:49] LABS: Absolute Lymphocyte Count 2.37 X10^3/uL (0.83-4.51); Absolute Neutrophil Count 4.2 X10^3/uL (2.0-7.7); Basophil# 0.04 X10^3/uL; Basophil% 0.6 % (0-1); Eosinophil# 0.15 X10^3/uL; Eosinophils% 2.1 % (0-5); Hematocrit 40.8 % (40-54); Hemoglobin 13.4 g/dL (13.0-16.5); Lymphocyte # 2.37 X10^3/ul (0.83-4.51); Lymphocyte % 32.6 % (19-41); Mean Corp Hgb Conc 32.8 g/dL (32-36); Mean Corpuscular Hgb 30.5 pg (27.0-32.0); Mean Corpuscular Volume 92.7 fL (80-94); Mean Platelet Vol. 9.4 fl (6.2-12.0); Monocyte# 0.53 X10^3/uL; Monocyte% 7.3 % (0-10); NRBC Flagged by Analyzer 0 % (0-5); Neutrophil # 4.17 X10^3/uL (2.7-7.7); Neutrophil % 57.3 % (47-70); Platelet Count 162 K/mm3 (150-450); RBC Distribution Width CV 12.8 % (11.6-14.6); RBC Distribution Width SD 43.9 fl (35.1-43.9); White Blood Count 7.3 K/mm3 (4.4-11.0)
[2024-03-06 06:16] LABS: Anion Gap 5 (5-15); BUN 18 mg/dL (7-18); BUN/Creat Ratio 21.7 RATIO (10-20); Calcium,Total 8.9 mg/dL (8.5-10.1); Chloride 110 mmol/L (98-107); Creatinine, Serum 0.83 mg/dL (0.70-1.30); EST Glomerular Filtration Rate 103 mL/min (>60); Est Glom Filt Rate - Afr Amer 125 mL/min (>60); Estimated Creatinine Clearance 118.01 ml/min; Glucose 110 mg/dL (74-106); Potassium 3.9 mmol/L (3.5-5.1); Sodium Level 140 mmol/L (136-145)
[2024-03-06] MEDS: Acetaminophen 325 MG Tablet 650 MG PO (07:57)
[2024-03-06 08:00] VITALS: BP 95/74; PULSE 57; RESP 18; TEMP 35.9; O2SAT 98
[2024-03-06 08:01] VITALS: PULSE 57
--- NOTE | 2024-03-06 10:02 | PCM.DC ---
Discharge Instructions Diet Discharge Diet: No restrictions DC O2, CPAP, BIPAP needs Additional Home O2 Discharge instructions: No Dressing / Incision Discharge Activity: Return to Normal Activity Dressing / Incision Call your doctor if you observe: Fever of 101 or Higher, Shortness of breath, Dizziness, Fainting spells, Swelling in the ankles, Chest pain and Increased palpitations (irregular heartbeat) Follow Up Care Test Results: Test results from this visit will be discussed in further detail at your follow-up appointment, if applicable. Discharge Plan Admission Admit Date/Time: 03/05/24 07:11 Attending Provider: James Gary Primary Care Provider: Devon Lee Discharge Orders/Prescriptions Prescriptions: No Action NK Referrals / Follow Up: Devon Lee MD [Primary Care Provider] - Within 1 Week Disposition Disposition (needs filled in before D/C Order can be placed): Home, Self Care
[2024-03-06 12:11] VITALS: BP 122/61; PULSE 56; RESP 18; TEMP 36.7; O2SAT 99
--- NOTE | 2024-03-06 13:33 | DS.PCM_ITS ---
Providers Date of Admission: 03/05/24 Primary Care Physician: Dr. Devon Lee MD Reason For Visit: SYNCOPE Diagnosis Discharge Diagnosis (1) Syncope: Status: Acute Code(s): R55 - Syncope and collapse Medications at Discharge Home Medications NK 03/05/24 Hospital Course Operations None Procedures 2-D Echocardiogram Summary of Care Provided Minutes Spent on Discharge: 39 Hospital Course: Per HPI: AMBER LAGUNAS, is a 53 M who presents to the hospital with 3 syncopal episodes at home. The first 1 happened around 4 in the morning as he was helping his with Thanksgiving turkey and he started to feel dizzy and collapsed to the floor. His found him and asked if you want to go to the ER and he said yes so he went to go put pants on and states that he passed out twice in the bedroom both of these were witnessed by his . No signs of seizure activity, and he denies any sensation of palpitations or chest pain. No lightheadedness or dizziness during the last 2 episodes but he did have some dizziness with the first episode. Blood sugar initial lab work was unremarkable in the ER. Orthostatic vital signs were normal. He does have a cardiac history with stent placement about 6 years ago. Since that time he has lost 96 pounds and he has had a calorie deficit of around 1200 to 1500 uyen/day Hospital Course: 1. Syncope?53-year-old male presented to the hospital with 3 episodes of syncope, the last 2 were witnessed by his and there is no signs of seizure- like activity. He denies any prodromal palpitations and he had over 24 hours of telemetry monitoring without any obvious arrhythmias. He did stay for an echo however he did not want to wait for the results of the echo prior to being discharged home as he felt fine. He did have orthostatic vital signs in the ER which were normal and he was given a liter of IV fluids. On the day of discharge he felt great and I discussed with him the possibility of discharge and he expressed understanding of the risk benefits of going home and he would like to go home today. He stated that if there is anything abnormal on his echo that he come back to the hospital. Of note TSH was elevated to 6.5 however his T3 and T4 were of normal values so recommend outpatient follow-up with his PCP in 3 to 5 days. 2. Coronary artery disease status post stent his main past medical history, he has lost close to 100 pounds since his stent so he is no longer on any medications Physical Exam Narrative General: Alert, Oriented x3, Cooperative, No apparent distress HEENT: Atraumatic, PERRLA, EOMI, Normocephalic Oral: Moist Mucosa Neck: Supple, No JVD Lungs: Clear to auscultation, Normal air movement, No rhonchi, No wheeze, No rales Cardiovascular: Regular rate, Regular Rhythm, Normal S1, Normal S2, No murmurs Abdomen: Soft, Non Tender, Non-Distended, No Hepato-splenomegaly Extremities: No edema, Capillary Refill Less than 3 Seconds Skin: No rashes, No breakdown Musculoskeletal: No Tenderness to Palpation of Joints or Extremities Neurological: No focal neurological deficits, Motor Exam 5/5 strength throughout, Sensory exam intact to light touch and pain Psych/Mental Status: Normal Affect, Appropriate Weight / BMI Weight Weight: 223 lb 1.725 oz Body Mass Index (BMI) 34.9 ABG / Lab / Microbiology Data 03/06/24 05:05 03/06/24 05:05 Laboratory: Laboratory Results - last 24 hr 03/06/24 05:05: WBC 7.3, RBC 4.40 L, Hgb 13.4, Hct 40.8, MCV 92.7, MCH 30.5, M CHC 32.8 D, RDW Std Deviation 43.9, RDW Coeff of Corrie 12.8, Plt Count 162, MPV 9.4, Immature Gran % (Auto) 0.100, Neut % (Auto) 57.3, Lymph % (Auto) 32.6, [place] % (Auto) 7.3, Eos % (Auto) 2.1, Baso % (Auto) 0.6, Absolute Neuts (auto) 4.2, Absolute Lymphs (auto) 2.37, Nucleated RBC % 0, Sodium 140, Potassium 3.9, C hloride 110 H, Carbon Dioxide 26.0, Anion Gap 5, BUN 18, Creatinine 0.83, Estim Creat Clear Calc 118.01, Est GFR (MDRD) Af Amer 125, Est GFR (MDRD) Non-Af 103, BUN/Creatinine Ratio 21.7 H, Glucose 110 H, Calcium 8.9 D/C Instructions Discharge Diet: No restrictions Call your doctor if you observe: Fever of 101 or Higher, Shortness of breath, Dizziness, Fainting spells, Swelling in the ankles, Chest pain and Increased palpitations (irregular heartbeat) DC O2, CPAP, BIPAP Needs Additional Home O2 Discharge instructions: No DC home with Oxygen: No Meaningful Use Info Meaningful Use Meaningful Use Diagnoses (Choose all that apply): None applicable Ischemic Stroke Statin Dosing Therapy Reference: STATIN DOSE THERAPY REFERENCE: * Patients > 75 years receive moderate or high dose statin therapy. * Patients 75 years or YOUNGER should receive HIGH intensity statin dose unless contraindicated. You will be required to document reason for non-treatment if statin daily dose does not meet guidelines. HIGH DOSE STATIN THERAPY DAILY Atorvastatin > than or = to 40 mg Rosuvastatin > than or = to 20 mg Amlodipine + Atorvastatin > than or = to 2.5/40 mg Ezetimibe + Simvastatin 10/80 mg Simvastatin 80mg Discharge Plan Admission Admit Date/Time: 03/05/24 07:11 Attending Provider: James Gary Primary Care Provider: Devon Lee Discharge Orders/Prescriptions Prescriptions: No Action NK Referrals / Follow Up: Devon Lee MD [Primary Care Provider] - Within 1 Week Disposition Disposition (needs filled in before D/C Order can be placed): Home, Self Care Charges/Coding Visit Charges Inpatient E&M: 87338 Disch Hosp >30min
== END 2024-03-06 12:29 | disposition home or self-care (01) ==
LOC: ED 05:41 → PCU 07:23
PROVIDERS: Admitting Provider Family Medicine; Emergency Provider Emergency Medicine; PCP Family Medicine; Visit Provider Family Medicine
DX: R55 Syncope and collapse (principal); E11.9 Type 2 diabetes mellitus without complications; I10 Essential (primary) hypertension; Z95.5 Presence of coronary angioplasty implant and graft; I25.10 Atherosclerotic heart disease of native coronary artery without angina pectoris; Z87.891 Personal history of nicotine dependence; E78.5 Hyperlipidemia, unspecified
CPT/HCPCS: 36415; 70450; 71046; 73130; 80048; 83735; 84439; 84443; 84481; 84484; 85025; 93005; 93306; 96360; 96361; 99221; 99285; A4216; G0378